=== PATIENT | male | born 1945 | race Caucasian/White ===

== ENCOUNTER 2017-03-20 13:23 | Emergency (ER) | payer OTHER ==
[~2017-03-20] VITALS: Ht 160 cm; Wt 63.6 kg
[~2017-03-20 13:23] MED LIST: LISI-360 PO; PRIL10CA PO
[2017-03-20 13:26] VITALS: BP 181/104; PULSE 118; RESP 14; TEMP 98; O2SAT 98
--- NOTE | 2017-03-20 14:02 | RADRPT ---
EXAM DATE/TIME: 03/20/2017 13:37 [facility] COMPARISON: No previous studies available for comparison. 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 RADIATION DOSE: 56.35 CTDIvol (mGy) MEDICAL HISTORY : Hypertension. SURGICAL HISTORY : Inguinal hernia repair. ENCOUNTER: Initial ACUITY: 2 days PAIN SCALE: 7/10 LOCATION: cranial TECHNIQUE: Multiple contiguous axial images were obtained of the head. Using automated exposure control and adj ustment of the mA and/or kV according to patient size, radiation dose was kept as low as reasonably a chievable to obtain optimal diagnostic quality images. DICOM format image data is available electro nically for review and comparison. FINDINGS: CEREBRUM: The ventricles are normal for age. No evidence of midline shift, mass lesion, hemorrhage or acute in farction. No extra-axial fluid collections are seen. POSTERIOR FOSSA: The cerebellum and brainstem are intact. The 4th ventricle is midline. The cerebellopontine angle i s unremarkable. EXTRACRANIAL: The visualized portion of the orbits is intact. SKULL: The calvaria is intact. No evidence of skull fracture. CONCLUSION: 1. No acute intracranial abnormality identified. Jelani Salamanca MD on March 20, 2017 at 13:58 Board Certified Radiologist. This report was verified electronically.
--- NOTE | 2017-03-20 14:18 | RADRPT ---
EXAM DATE/TIME: 03/20/2017 13:39 [facility] COMPARISON: CT BRAIN W/O CONTRAST, March 20, 2017, 13:37. 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 SURGICAL HISTORY : Inguinal hernia repair. ENCOUNTER: Initial ACUITY: 2 days PAIN SCALE: 7/10 LOCATION: Bilateral neck TECHNIQUE: Volumetric scanning of the cervical spine was performed. Multiplanar reconstructions in the sagittal, coronal and oblique axial planes were performed. Using automated exposure control and adjustment o f the mA and/or kV according to patient size, radiation dose was kept as low as reasonably achievable to obtain optimal diagnostic quality images. DICOM format image data is available electronically f or review and comparison. FINDINGS: There is normal sagittal spine alignment of the cervical spine. No anterolisthesis or retrolisthesis is present. The atlantoaxial relationship is within normal limits. There is no prevertebral soft tiss ue swelling present. No fracture or dislocation is identified. There is diffuse increased density of the bones. Degenerative disease is present at C6-C7. Endplate osteophytes are present anteriorly at m ultiple levels and there is facet arthrosis at multiple levels bilaterally. The visualized portions of the posterior fossa, paraspinous soft tissues, and upper lung zones demons trate no acute abnormality. CONCLUSION: 1. No acute cervical spine abnormality is identified. There is multilevel degenerative change. 2. Diffuse increased density of the bones. This potentially could represent a normal variant but sugg est correlation with the clinical history for any potential bone disorder. Ronaldo Fajardo MD on March 20, 2017 at 14:10 Board Certified Radiologist. This report was verified electronically.
--- NOTE | 2017-03-20 14:28 | RADRPT ---
EXAM DATE/TIME: 03/20/2017 13:40 [facility] COMPARISON: No previous studies available for comparison. 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 SURGICAL HISTORY : Inguinal hernia repair. ENCOUNTER: Initial ACUITY: 2 days PAIN SCORE: 7/10 LOCATION: facial uppe right orbit region. TECHNIQUE: Volumetric scanning of the facial bones was performed. Using automated exposure control and adjustme nt of the mA and/or kV according to patient size, radiation dose was kept as low as reasonably achiev able to obtain optimal diagnostic quality images. DICOM format image data is available electronicall y for review and comparison. FINDINGS: ORBITS: The orbital structures are intact. The retroconal structures have a normal configuration. No radiop aque foreign bodies are seen. The lenses are normally located. NASAL BONE: Nasal bones are minimally displaced to the left. ZYGOMATIC ARCHES: Symmetric without evidence of fracture. SINUSES: There is mild maxillary mucoperiosteal thickening bilaterally. No air-fluid levels seen. NASAL CAVITY: The nasal septum is intact and midline. The lacrimal ducts are intact. SOFT TISSUES: No radiopaque foreign bodies seen. There is subcutaneous hematoma in the right maxillary region measu ring approximately 2.1 x 1.0 cm. INTRACRANIAL: No acute intracranial abnormality is seen. OTHER: The mandible and pterygoid plates are intact. CONCLUSION: 1. There is a right maxillary region subcutaneous hematoma. 2. Possible minimally displaced bilateral nasal bone fractures. However, since no soft tissue swellin g is present in this area, this could represent a chronic finding. Ronaldo Fajardo MD on March 20, 2017 at 14:20 Board Certified Radiologist. This report was verified electronically.
[2017-03-20] MEDS ORDERED: LISI10TA3 PO (15:00)
[2017-03-20 15:05] VITALS: BP 161/90; PULSE 71; RESP 15; O2SAT 100
--- NOTE | 2017-03-20 15:08 | PD ---
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 CT of the head, facial bones, and neck was performed in triage. The patient feels that he has no headache, or other neurological symptoms currently. His coworker is concerned that he falls rather regularly. Patient denies recent illness or other problems. He has no pain or injury other than his right cheek area. He is allergic to sulfa. PFSH Past Medical History Hx Anticoagulant Therapy: No Cardiovascular Problems: Yes (HTN) GERD: Yes Hypertension: Yes Inguinal Hernia: Yes (BILATERAL) Past Surgical History Abdominal Surgery: Yes (BILATERAL INGUINAL HERNIA REPAIRS) Social History Alcohol Use: No Tobacco Use: Yes Substance Use: No Allergies-Medications (Allergen,Severity, Reaction): Coded Allergies: Sulfa (Sulfonamide Antibiotics) (Verified Allergy, Severe, Anaphylaxis, ) Reported Meds & Prescriptions Reported Meds & Active Scripts Active Reported Lisinopril 10 Mg Tab 10 Mg PO DAILY Review of Systems Except as stated in HPI: all other systems reviewed are Neg General / Constitutional: No: Fever Eyes: No: Visual changes HENT: No: Headaches Cardiovascular: No: Chest Pain or Discomfort Respiratory: No: Shortness of Breath Gastrointestinal: No: Abdominal Pain Genitourinary: No: Dysuria Musculoskeletal: No: Pain Skin: No Rash Neurologic: No: Weakness Psychiatric: No: Depression Endocrine: No: Polydipsia Hematologic/Lymphatic: No: Easy Bruising Physical Exam Narrative GENERAL: Patient appears in no obvious distress. SKIN: Warm and dry. Normal turgor. Patient has ecchymosis under the right eye on the right maxillary cheek. Otherwise no open wounds or abrasions. HEAD: Atraumatic. Normocephalic. Mild tenderness over the right maxillary cheek and nose. EYES: Pupils equal and round. No scleral icterus. No injection or drainage. ENT: No nasal bleeding or discharge. Mucous membranes pink and moist. Pharynx is clear. Airway is patent. TMs are clear bilaterally. NECK: Trachea midline. No JVD. He tenderness or step-off. Range of motion is full and supple. CARDIOVASCULAR: Regular rate and rhythm. RESPIRATORY: No accessory muscle use. Clear to auscultation. Breath sounds equal bilaterally. GASTROINTESTINAL: Abdomen soft, non-tender, nondistended. Hepatic and splenic margins not palpable. MUSCULOSKELETAL: Extremities without clubbing, cyanosis, or edema. No obvious deformities. Range of motion sensation. NEUROLOGICAL: Awake and alert. No obvious cranial nerve deficits. Motor grossly within normal limits. Patient has normal nose to finger testing. Five out of 5 muscle strength in the arms and legs. Normal speech. PSYCHIATRIC: Appropriate mood and affect; insight and judgment normal. Data Data Last Documented VS Vital Signs Date Time Temp Pulse Resp B/P (MAP) Pulse Ox O2 Delivery O2 Flow Rate FiO2 03/20/17 15:05 71 15 161/90 (113) 100 Room Air 03/20/17 13:[address] Brain W/O Iv Contrast(Rout) (03/20/17 ) Ct Facial Bones W/O Iv Cont (03/20/17 ) Ct Cerv Spine W/O Contrast (03/20/17 ) MDM Medical Decision Making Medical Screen Exam Complete: Yes Emergency Medical Condition: Yes Differential Diagnosis Mechanical fall. Facial contusion. Head injury. Neck strain. Narrative Course Patient appears medically stable at time of exam. CT scans are all negative for acute process other than possible nasal fracture. Neurologically the patient is appears intact and equal bilaterally. As were discussed with Dr. Mojica who felt patient was safe for discharge with close follow-up with his primary care physician. I recommended a cane or walker for the patient to prevent further falls. Patient follow with the [facility] or return to the emergency Department with worsening symptoms as needed. Diagnosis Primary Impression: Fall Qualified Codes: W19.XXXA - Unspecified fall, initial encounter Additional Impression: Contusion of face Qualified Codes: S00.83XA - Contusion of other part of head, initial encounter Referrals: [facility] Patient Instructions: Fall Prevention for Older Adults (DC), General Instructions Additional Instructions: CT scans are all negative for acute process other than possible nasal fracture. Neurologically the patient is appears intact and equal bilaterally. As were discussed with Dr. Mojica who felt patient was safe for discharge with close follow-up with his primary care physician. I recommended a cane or walker for the patient to prevent further falls. [facility] return to the emergency Department with worsening symptoms as needed. Med/Other Pt SpecificInfo: Prescription(s) given Disposition: 01 DISCHARGE HOME Condition: Stable Tunde Patton Mar 20, 2017 15:08
== END 2017-03-20 15:51 | disposition home or self-care (01) ==
LOC: NEPD 13:23
DX: S00.83XA Contusion of other part of head, initial encounter (principal); I10 Essential (primary) hypertension; K21.9 Gastro-esophageal reflux disease without esophagitis; Z72.0 Tobacco use; W19.XXXA Unspecified fall, initial encounter
CPT/HCPCS: 70450; 70486; 72125; 99285